=== PATIENT | female | born 1945 | race Caucasian/White ===

== ENCOUNTER 2016-04-20 10:48 | Day surgery (SDC) | payer MEDICARE ==
[~2016-04-20 10:48] MED LIST: ACETAMINOPHEN 325 MG TABLET PO PRN; ACETYLCHOLINE CHLORIDE 20 DROP KIT IO PRN; BUPIVACAINE HCL/PF 30 ML VIAL IJ PRN; CYCLOPENTOLATE HCL 20 DROP BTL RIGHTEYE PRN; DEXTROSE 5%-0.5 NORMAL SALINE 1,000 ML IV PRN; EPINEPHrine 1 MG/ML AMPUL IO PRN; HYALURONATE SODIUM 0.4 ML DISP.SYRIN IO PRN; HYALURONATE SODIUM 0.85 ML DISP.SYRIN IO PRN; LIDOCAINE HCL/PF 200 MG/5 ML AMPUL TP PRN; LIDOCAINE HCL/PF 5 ML VIAL IO PRN; NORMAL SALINE 3 ML BOX IV PRN; TETRACAINE HCL 150 DROP BTL OP PRN
[2016-04-20] MEDS: TROPICAMIDE 150 DROP BTL RIGHTEYE PRN ×3 (11:32→11:56)
[2016-04-20] MEDS: PHENYLEPHRINE HCL 50 DROP BTL RIGHTEYE PRN ×3 (11:32→11:56)
[2016-04-20] MEDS ORDERED: DEXTROSE 5%-0.5 NORMAL SALINE 1,000 ML IV ONE (11:56)
[2016-04-20] MEDS ORDERED: HYALURONATE SODIUM 0.85 ML DISP.SYRIN IO ONE (12:50)
[2016-04-20 14:05] VITALS: BP 120/66
== END 2016-04-20 10:49 | disposition home or self-care (01) ==
LOC: AMB 10:48
PROVIDERS: ATTEND Ophthalmology
PROC: 08RJ3JZ Replacement of Right Lens with Synthetic Substitute, Percutaneous Approach (ICD-10-PCS; principal; 2016-04-20 12:00)
DX: H26.9 Unspecified cataract (principal); I10 Essential (primary) hypertension; Z87.891 Personal history of nicotine dependence; Z68.1 Body mass index [BMI] 19.9 or less, adult

== ENCOUNTER 2016-05-04 08:50 | Day surgery (SDC) | payer MEDICARE ==
[~2016-05-04 08:50] MED LIST changes: +CYCLOPENTOLATE HCL 20 DROP BTL LEFTEYE PRN; -CYCLOPENTOLATE HCL 20 DROP BTL RIGHTEYE PRN
[2016-05-04] MEDS: PHENYLEPHRINE HCL 50 DROP BTL LEFTEYE PRN ×3 (09:31→09:55)
[2016-05-04] MEDS: TROPICAMIDE 150 DROP BTL LEFTEYE PRN ×3 (09:31→09:55)
[2016-05-04] MEDS ORDERED: DEXTROSE 5%-0.5 NORMAL SALINE 1,000 ML IV ONE (09:48)
[2016-05-04 11:50] VITALS: BP 132/78
== END 2016-05-04 08:51 | disposition home or self-care (01) ==
LOC: AMB 08:50
PROVIDERS: ATTEND Ophthalmology
PROC: 08RK3JZ Replacement of Left Lens with Synthetic Substitute, Percutaneous Approach (ICD-10-PCS; principal; 2016-05-04 10:00)
DX: H26.9 Unspecified cataract (principal); I10 Essential (primary) hypertension; Z87.891 Personal history of nicotine dependence; Z68.1 Body mass index [BMI] 19.9 or less, adult

== ENCOUNTER 2016-08-31 22:57 | Inpatient (IN) | payer MEDICARE ==
[2016-08-31] MEDS ORDERED: ALBUTEROL SULFATE/IPRATROPIUM 3 ML NEBU IH ONE ×2 (23:01→23:05)
[2016-08-31] MEDS ORDERED: ASPIRIN 81 MG TAB.CHEW PO ONE (23:05)
[2016-08-31] MEDS ORDERED: METHYLPREDNISOLONE SOD SUCC/PF 40 MG/ML VIAL IV ONE (23:05)
--- NOTE | 2016-08-31 23:08 | ERNOTE ---
Dyspnea - Date Date of Service: 08/31/16 - General Presenting Symptoms: shortness of breath Time Seen by Provider: 08/31/16 23:03 Source: patient, EMS Exam Limitations: clinical condition - Immun/Allergies/Home Medications Immunizations: IMMUNIZATION HX History of Influenza Vaccine More Information Required Hx Pneumococcal Vaccination More Information Required Allergies/Adverse Reactions: Allergies No Known Allergies Allergy (Verified 05/04/16 09:23) Home Medications: HOME MEDICATIONS Sertraline HCl [Zoloft] 200 mg PO DAILY 05/23/13 [Last Taken 05/27/13] amLODIPine BESYLATE [Norvasc] 5 mg PO DAILY 05/23/13 [Last Taken 05/27/13] Budesonide [Pulmicort Respules] 0.5 mg IH BIDRT #60 vial.neb 11/07/14 [Last Taken Unknown] Metoprolol Tartrate [Lopressor] 25 mg PO Q8H #90 tablet 11/07/14 [Last Taken 12:00] Pantoprazole Sodium [Protonix] 40 mg PO BID@0700,2100 #60 tablet. 11/07/14 [ Last Taken Unknown] ALPRAZolam [Xanax] 1 mg PO HS 04/15/16 [Last Taken Unknown] - History of Present Illness Narrative: INCREASED SOB OVER THE PAST 3 DAYS . SHE HAS END STAGE COPD AND IS ON 2.5 L O2 AT HOME WHICH HER TURNED UP TO 3 L YESTERDAY. NO KNOWN FEVER. SAYS SHE HAS BEEN BAD FOR YEARS BUT GOING DOWN HIL RAPIDLY IN THE PAST YEAR WITH 40 LB WT. LOSS AND DECREASE STRENGTH AND APPETITE. Review of Systems - Narrative Narrative: UNABLE TO GET GOOD ROS PT HAS EXTREME DYSPNEA SECONDARY TO HER COPD EXACERBATION BUT SONE REPORTS THAT SHE HAS HAD INCREASE SOB FOR 3 DAYS. SEE HPI - Review of Systems Constitutional: Present: See HPI Respiratory: Present: See HPI, shortness of breath All Other Systems: All systems neg except as marked - Patient's Past Medical History Patient History - Medical: Depression, Other Patient History - Cardiac/Respiratory: Coronary Heart Disease, CHF, COPD, Hypertension, Myocardial Infarction, Pneumonia Patient History - Cancer: No Hx of Cancer Patient History - Surgical Procedures: Cataracts, Tubal Ligation, Other Patient History - Other: None - Family History Mother Family History - Medical: , Diabetes Type 1 Family History - Cardiac/Respiratory: COPD, Hypertension, Myocardial Infarction Family History - Cancer: No pertinent family hx Father Family History - Medical: , No pertinent hx Family History - Cardiac/Respiratory: Hypertension Family History - Cancer: No pertinent family hx - Social History Living Situations: spouse Abuse History: No History of abuse Psych History: Hx of Anxiety, Hx of Depression, Current tx/ever been on anti- depressants or anti-anxiety meds Smoking Status: Former smoker - CLAIMS SHE QUIT. Alcohol Use: none Drug Use: none - Immunizations Hx Pneumococcal Vaccination: More Information Required to Determine History of Influenza Vaccine: More Information Required to Determine Physical Exam - Physical Exam General Appearance: Present: severe distress - VERY CACHETIC LADY WITH EXTREME DYSPNEA, CAN HARDLY TALK, THOUGH SHE IS ALERT AND ORIENTED. Eye Exam: Normal inspection: bilateral Respiratory: Present: accessory muscle use, decreased breath sounds - ESPECIALLY OVER RIGHT LUNG FIELD. , rales Cardiovascular/Chest: Present: no murmur, normal peripheral pulses, tachycardia Peripheral Pulses: N=norm/S=strong/W=weak/B=bound/A=absent: Dorsalis-pedis (R): Normal, Dorsalis-pedis (L): Normal Gastrointestinal/Abdominal: Present: nontender, soft, no organomegaly Back Exam: Present: normal inspection - EXCEPT FOR BEING VERY BONY. Extremity Exam: Present: normal inspection, non-tender, no edema Neurological Exam: Present: alert, oriented Skin Exam: Present: normal color ED Progress - Date and Time Seen: Date and Time: 09/01/16 00:26 TALKING WITH PT. AND HER AND BOTH SAYS THAT SHE DOES NOT WANT TO BE INTUBATED AND ON A VENTILATOR OR HAVE CPR IF HER HEART WOULD STOP. SEVERAL STAFF ALSO HEARD THIS THOUGH SHE HAS NOT PUT ANYTHING IN WRITING . I DID EXPLAIN TO HER THAT SHE IS VERY CRITICAL AND MAY VERY WELL NOT MAKE IT , HE UNDERSTANDS AND IS NOT SURPRISED AND HE SAYS SHE HAS BEEN GREATLY DETERIORATING THE LAST YEAR. - Results and Orders Patient's Lab Results:: I have reviewed the patient's lab results. Results and Orders: WBC = 23K WIOTH LEFT SHIFT AND TOXIC VACUOLATION, LYTES = WNL, BUN = 44 WITH NL CREAT =1. D DIMER = ELEVATED AND LACTIC = 3.0 . TROP = NEG AND BNP = 4.7K. ABG ON BIPAP AT 18/4 = PH 7.36 CO2-61, O2 -69 - Vital Signs Patient's Vital Signs:: I have reviewed the patient's vital signs. - EKG EKG: unchanged from - 01/2014 EXCEPT THAT NOW IS TACHYCARDIC. - X-Ray X-Ray #1 X-Ray: chest - HYPERINFLATED LEFT LUNG, LARGE EFFUSION /INFILTRATE TO RIGHT LUNG OBSCURING DIAPHRAGM ON THE RIGHT. - Progress/Reassessment Progress:: Improved - BUT ONLY SL. SO. SHE DOES SEEM MORE COMFORTABLE WITH BIPAP . - Transfer of Care Expected Disposition: Admit Plan - Plan Plan: [id number] - I DISCUSSED WITH HOSPITALIST PEPE ABOUT ADMITTING PT AND SHE ISS DOWN SEEING THE PT. Departure Clinical Impression: COPD with exacerbation Pneumonia Qualifiers: Pneumonia type: due to unspecified organism Laterality: right Lung location: lower lobe of lung Qualified Code(s): J18.1 - Lobar pneumonia, unspecified organism - Departure Disposition: [facility] Condition: Critical
[2016-08-31 23:16] LABS: Hematocrit 37.1 % (37.0-47.0); Hemoglobin 11.4 gm/dL (12.5-16.0); Mean Corpuscular Hemoglobin 27.7 pg (27-31); Mean Corpuscular Hgb Conc 30.7 g/dl (32-36); Mean Platelet Volume 8.9 fl (6.0-9.5); Platelet Count 444 K/mm3 (150-450); Red Blood Count 4.12 M/mm3 (4.2-5.4); Red Cell Distribution Width 14.4 % (11.5-14.0); White Blood Count 23.8 K/mm3 (4.0-10.5)
[2016-08-31] MEDS ORDERED: METHYLPREDNISOLONE SOD SUCC/PF 125 MG/2 ML VIAL ONE (23:20)
[2016-08-31] MEDS ORDERED: ASPIRIN 81 MG TAB.CHEW ONE (23:20)
[2016-08-31 23:21] LABS: Total Cells Counted 100
[2016-08-31] MEDS ORDERED: ALBUTEROL SULFATE 2.5 MG/3 ML VIAL.NEB IH ONE (23:24)
[2016-08-31] MEDS ORDERED: LEVOFLOXACIN/D5W 750 MG/150 ML BAG IV ONE (23:30)
[2016-08-31] MEDS ORDERED: LORazepam 2 MG/ML DISP.SYRIN IV ONE (23:31)
[2016-08-31] MEDS ORDERED: LORazepam 2 MG/ML DISP.SYRIN ONE (23:35)
[2016-08-31 23:36] LABS: ALT 12 U/L (19-67); AST 18 U/L (0-48); Albumin * 2.1 gm/dl (3.4-5.0); Alkaline Phosphatase * 98 U/L (50-170); Anion Gap 9.7 mmol/L (6.8-13.8); BNP * 4767 pg/mL (5-325); BUN/Creatinine Ratio 41.5 (9.0-21.6); Bilirubin, Total 0.5 mg/dL (0.0-1.1); Blood Urea Nitrogen 44 mg/dL (3-23); Ca. Corrected For Albumin 9.2 mg/dL (8.4-10.2); Chloride 94 mmol/L (97-106); Glucose * 135 mg/dL (70-110); Potassium 3.7 mmol/L (3.4-4.6); Sodium 137 mmol/L (132-142); Total Protein 6.5 gm/dL (6.2-8.2); Troponin I Less than 0.017 ng/ml (0.00-0.10)
[2016-08-31 23:38] LABS: Band 14 % (0-2.0); Immature Granulocyte 7 (0-1); Lymphocyte 2 % (20-51); Monocyte 2 % (0-9); Neutrophil 75 % (42-75); Neutrophil # 17.9 K/mm3 (1.3-6.0)
[2016-08-31 23:40] LABS: Toxic Granulation Trace
[2016-08-31 23:41] LABS: Dohle Bodies 1+; Platelet Estimate Normal (NORMAL); RBC Morphology Normal (NORMAL)
[2016-08-31] MEDS ORDERED: ALBUTEROL SULFATE 2.5 MG/0.5 ML VIAL.NEB IH ONE (23:42)
[2016-08-31] MEDS ORDERED: NORMAL SALINE 1,000 ML IV PRN (23:56)
[2016-09-01] MEDS ORDERED: NORMAL SALINE 1,000 ML IV ONE (00:41)
[2016-09-01 01:31] LABS: Urine Bilirubin 1 mg/dl (NEGATIVE); Urine Blood Negative /ul (NEGATIVE); Urine Ketone Negative (NEGATIVE); Urine Nitrite Negative (NEGATIVE); Urine Protein 15 mg/dL (NEGATIVE); Urine Specific Gravity 1.025 SP.GR. (1.005-1.010); Urine Urobilinogen Normal (NORMAL); Urine pH 5.5 pH (5.0-7.0)
[2016-09-01] MEDS: NORMAL SALINE 1,000 ML IV ONE ×2 (01:39→01:45)
[2016-09-01 02:00] LABS: Urine Amorphous Sediment Few - 1+ (NONE-FEW); Urine Appearance Slightly Cloudy; Urine Bacteria 1+; Urine Color Yellow; Urine RBC None Seen /hpf (0-5); Urine WBC 0-5 /hpf (0-5)
[2016-09-01] MEDS ORDERED: LEVALBUTEROL HCL 1.25 MG/3 ML AMPUL IH ONE (02:41)
[2016-09-01] MEDS ORDERED: LEVALBUTEROL HCL 1.25 MG/3 ML AMPUL IH SCH ×2 (03:00→07:00)
--- NOTE | 2016-09-01 03:10 | HP ---
Chief Complaint - Chief Complaint Date of Service: 09/01/16 Time of Service: 02:38 Chief Complaint: " SOB, Weakness, Fall". Source of HPI- Pt; unreliable, Pt's spouse Lopez, ER provider report. History of Present Illness: Mrs. Boland is a 71-yr-old [place] pt of Dr. Efe Machado with a PMH of: COPD, Depression, HTN & Respiratory Failure. Pt is in a somnolent state of consciousness and therefore pt's Spouse, Lopez Boland, provided most of the information. He states the Mrs Boland developed worsening SOB 3 days ago. The longest distance she can walk before getting dyspneic is 10 ft. She has been sleeping in the recliner due her SOB. Tonight, the pt got extremely SOB while sitting on the recliner. He states that the pt begged him to bring her to the hospital, and so he called the EMS as she has been very weak. The pt is chronically on 2-3 L of oxygen at home and has been for the last 1 1/2 yrs. He reports that her appetite has been very poor and this yr alone, she has already lost 15 lbs and a total of about 40 since last yr. He also states that pt has been falling alot lately and complaints of hot/cold flashes. Tonight when the EMS arrived at her home, they were not able to obtain any SPO2 reading and she was placed on BIPAP with 100% fi02 enroute to the hospital. They were finally able to get a reading of 90% upon entry to the hospital. She presented with tachycardia, tachypnea and noted to use accessory muscles on arrival to the ED. She remained on the BIPAP while at the ED and the ABG's obtained showed Respiratory Acidosis. ERP spoke to the pt's spouse about treatment plan in the event that her respiratory distress worsened and the likelihood of requiring intubation if the ABG'S worsened. He affirmed that the pt would not have wished for intubation with mechanical ventilation and he would not want the pt to undergo that kind of aggressive measure. Other workup at the ED showed she had Leukocytosis with WBC count of 23,800 with a Left shift & Lactic acid of 3.0. The CXR obtained showed she had infiltrates suggesting Pneumonia and Large RT Pleural effusion. Pt will need to be admitted inpatient to a closed monitoring unit due to Acute Respiratory Distress and Sepsis. - Patient's Past Medical History Patient History - Medical: Depression, Other Patient History - Cardiac/Respiratory: Coronary Heart Disease, CHF, COPD, Hypertension, Myocardial Infarction, Pneumonia Patient History - Cancer: No Hx of Cancer Patient History - Surgical Procedures: Cataracts, Tubal Ligation, Other Patient History - Other: None LMP (females 10-50): Menopausal - Family History Mother Family History - Medical: , Diabetes Type 1 Family History - Cardiac/Respiratory: COPD, Hypertension, Myocardial Infarction Family History - Cancer: No pertinent family hx Father Family History - Medical: , No pertinent hx Family History - Cardiac/Respiratory: Hypertension Family History - Cancer: No pertinent family hx - Social History Living Situations: spouse Abuse History: No History of abuse Psych History: Hx of Anxiety, Hx of Depression, Current tx/ever been on anti- depressants or anti-anxiety meds Smoking Status: Former smoker - CLAIMS SHE QUIT. Alcohol Use: none Drug Use: none - Immunizations Hx Pneumococcal Vaccination: More Information Required to Determine History of Influenza Vaccine: More Information Required to Determine Review Of Systems (GEN) - Review of Systems Misc: All systems neg except as marked Additional Comments: ROS unobtainable due to pt decreased level of consciousness. Allergies/Adverse Reactions: Allergies Allergy/AdvReac Type Severity Reaction Status Date / Time No Known Allergies Allergy Verified 09/01/16 04:08 Home Medications: HOME MEDICATIONS Sertraline HCl [Zoloft] 200 mg PO DAILY 05/23/13 [Last Taken 05/27/13] amLODIPine BESYLATE [Norvasc] 5 mg PO DAILY 05/23/13 [Last Taken 05/27/13] Budesonide [Pulmicort Respules] 0.5 mg IH BIDRT #60 vial.neb 11/07/14 [Last Taken Unknown] Metoprolol Tartrate [Lopressor] 25 mg PO Q8H #90 tablet 11/07/14 [Last Taken 12:00] Pantoprazole Sodium [Protonix] 40 mg PO BID@0700,2100 #60 tablet.dr 11/07/14 [ Last Taken Unknown] ALPRAZolam [Xanax] 1 mg PO HS 04/15/16 [Last Taken Unknown] Exam - Exam Vital Signs: Vital Signs - Last Taken Temp 36.7 C 08/31/16 23:00 Pulse 118 H 09/01/16 02:17 Resp 25 H 06/20/17 02:17 BP 133/85 09/01/16 02:17 Pulse Ox 98 09/01/16 01:26 Constitutional: Present: Somnolent, Other, Thin and frail, Looks Older than stated age ENT Exam: Present: dry mucous membranes Neck: Present: normal inspection, trachea midline Back Exam: Present: normal inspection Breasts: Present: Exam deferred Respiratory: Present: decreased breath sounds, rales - RT base Cardiovascular/Chest: Present: irregularly irregular Abdomen: Present: soft, nontender /Rectal: Present: Other - Zambrano catheter Extremity: Present: normal inspection, no pedal edema Skin Exam: Present: cool/dry, mottled - On the knees, pallor Lymphatic: Present: no adenopathy Neurologic: Present: other - Orineted to self only, GCS of 7 Appearance: Present: impaired insight Eye contact: Present: other - lacks spontanous eye opening. Thoughts: Present: no apparent hallucination Diagnostic Studies: Laboratory Results WBC 23.8 K/mm3 (4.0-10.5) H 08/31/16 23:10 RBC 4.12 M/mm3 (4.2-5.4) L 08/31/16 23:10 Hgb 11.4 gm/dL (12.5-16.0) L 08/31/16 23:10 Hct 37.1 % (37.0-47.0) 08/31/16 23:10 MCV 90.0 fl (78-100) 08/31/16 23:10 MCH 27.7 pg (27-31) 08/31/16 23:10 MCHC 30.7 g/dl (32-36) L 08/31/16 23:10 RDW 14.4 % (11.5-14.0) H 08/31/16 23:10 Plt Count 444 K/mm3 (150-450) 08/31/16 23:10 MPV 8.9 fl (6.0-9.5) 08/31/16 23:10 Neutrophils % (Manual) 75 % (42-75) 08/31/16 23:10 Band Neuts % (Manual) 14 % (0-2.0) H 08/31/16 23:10 Lymphocytes % (Manual) 2 % (20-51) L 08/31/16 23:10 Monocytes % (Manual) 2 % (0-9) 08/31/16 23:10 Immature Granulocytes 7 (0-1) H 08/31/16 23:10 Neutrophils # (Manual) 17.9 K/mm3 (1.3-6.0) H 08/31/16 23:10 Lymphocytes # (Manual) 0.5 k/mm3 (1.5-3.5) L 08/31/16 23:10 Monocytes # (Manual) 0.5 k/mm3 (0.0-1.0) 08/31/16 23:10 Toxic Granulation Trace 08/31/16 23:10 Toxic Vacuolation 4+ 08/31/16 23:10 Dohle Bodies 1+ 08/31/16 23:10 Platelet Estimate Normal (NORMAL) 08/31/16 23:10 RBC Morphology Normal (NORMAL) 08/31/16 23:10 D-Dimer 1.48 mg/L (0.19-0.49) H 08/31/16 23:10 pCO2 61.2 mmHg (32.0-45.0) H 08/31/16 23:45 pO2 69.3 mmHg (83.0-108.0) L 08/31/16 23:45 HCO3 33.4 mmol/L (21.0-28.0) H 08/31/16 23:45 Total CO2 35.3 mmol/L (19.0-24.0) H 08/31/16 23:45 Base Excess 6.3 mmol/L (-2.0-3.0) H 08/31/16 23:45 ABG pH 7.36 (7.35-7.45) 08/31/16 23:45 ABG O2 Sat (Measured) 92.7 % (94.0-98.0) L 08/31/16 23:45 Sodium 137 mmol/L (132-142) 08/31/16 23:10 Plasma Sodium 138 mmol/L (130-142) 08/31/16 23:10 Potassium 3.7 mmol/L (3.4-4.6) 08/31/16 23:10 Chloride 94 mmol/L (97-106) L 08/31/16 23:10 Carbon Dioxide 37.0 mmol/L (24-32.6) H 08/31/16 23:10 Anion Gap 9.7 mmol/L (6.8-13.8) 08/31/16 23:10 BUN 44 mg/dL (3-23) H 08/31/16 23:10 Creatinine 1.06 mg/dL (0.4-1.4) 08/31/16 23:10 Est GFR (Non-Af Amer) 55 mL/min (60-130) L 08/31/16 23:10 BUN/Creatinine Ratio 41.5 (9.0-21.6) H 08/31/16 23:10 Random Glucose 135 mg/dL (70-110) H 08/31/16 23:10 Lactic Acid, Venous 3.0 mmol/L (0.4-1.9) H* 08/31/16 23:10 Calcium 8.0 mg/dL (7.9-10.9) 08/31/16 23:10 Calcium Adj for Albumin 9.2 mg/dL (8.4-10.2) 08/31/16 23:10 Total Bilirubin 0.5 mg/dL (0.0-1.1) 08/31/16 23:10 AST 18 U/L (0-48) 08/31/16 23:10 ALT 12 U/L (19-67) L 08/31/16 23:10 Alkaline Phosphatase 98 U/L (50-170) 08/31/16 23:10 Troponin I Less than 0.017 ng/ml (0.00-0.10) 08/31/16 23:10 B-Natriuretic Peptide 4767 pg/mL (5-325) H 08/31/16 23:10 Total Protein 6.5 gm/dL (6.2-8.2) 08/31/16 23:10 Albumin 2.1 gm/dl (3.4-5.0) L 08/31/16 23:10 Urine Color Yellow 09/01/16 01:20 Urine Appearance Slightly cloudy 09/01/16 01:20 Urine pH 5.5 pH (5.0-7.0) 09/01/16 01:20 Ur Specific [place] 1.025 SP.GR. (1.005-1.010) 09/01/16 01:20 Urine Protein 15 mg/dL (NEGATIVE) H 09/01/16 01:20 Urine Glucose (UA) Negative mg/dL (NEGATIVE) 09/01/16 01:20 Urine Ketones Negative mg/dL (NEGATIVE) 09/01/16 01:20 Urine Blood Negative /ul (NEGATIVE) 09/01/16 01:20 Urine Nitrate Negative (NEGATIVE) 09/01/16 01:20 Urine Bilirubin 1 mg/dl (NEGATIVE) H 09/01/16 01:20 Urine Ictotest Negative (NEGATIVE) 09/01/16 01:20 Prot Sulfosalicylic Acd Negative mg/dL (0) 09/01/16 01:20 Urine Urobilinogen Normal EU/dl (NORMAL) 09/01/16 01:20 Ur Leukocyte Esterase Negative /ul (NEGATIVE) 09/01/16 01:20 Urine RBC None seen /hpf (0-5) 09/01/16 01:20 Urine WBC 0-5 /hpf (0-5) 09/01/16 01:20 Ur Epithelial Cells 0-5 /hpf (0-5) 09/01/16 01:20 Amorphous Sediment Few - 1+ (NONE-FEW) 09/01/16 01:20 Urine Bacteria 1+ (NONE) H 09/01/16 01:20 Urine Culture Comments No culture indicated 09/01/16 01:20 Assessment/Plan - Assessment/Plan (1) Acute respiratory failure with hypercapnia Assessment: Pt presented with worsening respiratory symptoms not supported or evidenced by fluid overload signs. She had cardinal signs of hypercapnea: Dyspnea, tachycardic, tachypneic and impaired consciousness. She required high concentration of inspired oxygen at 100% via the BIPAP to be able to keep POX > 90%. The ABG results showed Respiratory acidosis. The CXR obtained had findings concerning for Pneumonia and Pleural effusion. She also had a WBC of 23,600 with a left shift. Her GSC Scale was 7. Pt not in a position to make an informed consent and so I discussed goals of care & management with the pt's spouse Lopez Boland, given the pt presentation of respiratory failure and how she could potentially need intubation with mechanical ventilation to overcome her respiratory distress. I explained to him that Mrs. Boland was on the BIPAP with the highest amount of oxygen that can be delivered to keep her POX level above 90% in order to maintain adequate lung perfusion & consciousness, and that the next step that would be normally be undertaken if pt failed to improve in her case or keep her POX above at least above 88% would be intubation. He reaffirmed again to me, that both of them had made decisions longtime ago that neither of them would want to be intubated and on mechanical ventilation and would rather be DNR if medical conditions got worse. He stated that he would not want the pt to be intubated and opted for DNR code status. He also stated the he understood the serious situation his was as explained to by the ER doctor. I informed him that that even though pt was DNR, we would still treat her for the Pneumomia & COPD, but the major challenge would if she continued having desaturations while on the BIPAP, then it would be imperative to transition to comfort care measures. He verbalized the understanding and agreed to the treatment plan. I assured him that if the pt's condition worsened, we would visit again about initiating comfort cares measures. Problem: Acute (2) Sepsis Assessment: Pt received IVF hydration, however, the IVF had to be conservative due to respiratory distress.She received treatment with Levaquin and Meropenem. Problem: Acute (3) Pneumonia Assessment: Plan as above. Problem: Acute (4) COPD with exacerbation Problem: Acute (5) Hypertension Problem: Chronic Qualifiers: Hypertension type: essential hypertension Qualified Code(s): I10 - Essential (primary) hypertension
[2016-09-01] MEDS ORDERED: MEROPENEM 500 MG in NORMAL SALINE 100 ML IV SCH (04:00)
[2016-09-01] MEDS ORDERED: POLYVINYL ALCOHOL 150 DROP BTL EACHEYE PRN (04:22)
[2016-09-01] MEDS ORDERED: ATROPINE SULFATE 150 DROP BTL SL PRN (04:22)
[2016-09-01] MEDS: LORazepam 2 MG/ML DISP.SYRIN IV PRN ×2 (04:54→12:51)
[2016-09-01] MEDS: MORPHINE SULFATE 4 MG/ML SYRG IV PRN ×2 (04:55→05:51)
[2016-09-01] MEDS ORDERED: METHYLPREDNISOLONE SOD SUCC 80 MG in WATER FOR INJ.,BACTERIOSTATIC 0 ML IV SCH (05:00)
[2016-09-01 05:11] VITALS: BP 91/55
--- NOTE | 2016-09-01 06:42 | PN ---
Progess Note - Interim Narrative: 09/01/16 06:34 Pt admitted to the SCU status, however 1 hour after being in the unit, I was notified by nursing about Desaturations to 80s on the BIPAP. She was given Xopenex and was able to recuperate up to the low 90s. However 20-30 minutes later, her finger SPO2 reading showed 60's. Pt noted to have cool extremities and mottling on the Bilateral knees downward. Pox reading unobtainable on any finger digits and on the ear lobe. ABGs obtained which showed worsening uncompensated Respiratory acidosis. I had a lengthy conversation with pt's spouse about pt's declining state despite attempts with the BIPAP use, Antibiotics, IV Steroids and Nebulizer treatment. I informed him that since the most aggressive management as discussed earlier with him was failing,it was time to consider changing plan of care to comfort cares. He verbalized that understanding stating that he was completely agreeable to the approach being taken. Emotional support given and he was thankful. Plan of care communicated to nursing about de-escalation of medication cares.
[2016-09-01] MEDS ORDERED: BUDESONIDE 0.5 MG/2 ML VIAL.NEB IH SCH (07:00)
[2016-09-01] MEDS ORDERED: HEPARIN SODIUM,PORCINE 5,000 UNITS/ML VIAL SC SCH (09:00)
[2016-09-01] MEDS ORDERED: MORPHINE SULFATE 2 MG/ML DISP.SYRIN IV PRN (10:08)
[2016-09-01] MEDS ORDERED: oxyCODONE HCL 5 MG/5 ML UDC PO PRN (13:14)
[2016-09-01] MEDS: MORPHINE SULFATE 10 MG/0.5 ML SYRINGE PO PRN ×7 (13:41→19:10)
[2016-09-01] MEDS ORDERED: LORazepam 2 MG/ML DISP.SYRIN IV PRN ×2 (19:21→19:23)
[2016-09-01] MEDS ORDERED: HYDROmorphone HCL 1 MG/ML DISP.SYRIN IV PRN (19:22)
[2016-09-01] MEDS ORDERED: HYDROmorphone HCL 2 MG/ML VIAL IV PRN (19:23)
[2016-09-01] MEDS ORDERED: LORazepam 1 MG TABLET PO PRN (20:15)
--- NOTE | 2016-09-01 20:41 | DS ---
Discharge Summary - Provider Primary Care Provider: Efe Machado Admitting Clinician: Lizbeth Sousa Attending Physician on Admission: Baylee Nevarez Pronouncing Clinician: Autumn Rowley - Date and Time Date of : 09/01/16 Time of : 20:16 - Diagnosis/Cause of (1) Acute respiratory failure with hypercapnia Problems: Acute (2) COPD with exacerbation Problems: Acute (3) Pneumonia Problems: Acute (4) Sepsis Problems: Acute - Summary Details (narrative): Mrs. Boland is a 71-yr-old [place] pt of Dr. Efe Machado with a PMH of: COPD, Depression, HTN & chronic Respiratory Failure. Prior to admission pt had 3 days of worsening dyspnea and became very weak to the point of calling EMS. EMS started bipap with 100% fiO2 enroute to the ER. ABG's obtained showed Respiratory Acidosis. ERP spoke to the pt's spouse about treatment plan in the event that her respiratory distress worsened and may require intubation. confirmed DNR wishes with no agressive measures. Other ED workup showed Leukocytosis with WBC count of 23,800 with a Left shift & Lactic acid of 3.0. The CXR showed infiltrates suggesting Pneumonia and Large RT Pleural effusion. Pt was admitted inpatient to a closed monitoring unit due to Acute Respiratory Distress and Sepsis. Her GSC Scale was 7. Bipap was continued on admission and She received treatment with Levaquin and Meropenem. Shortly after admission, pt started desaturating to 80s on the BIPAP. She was given Xopenex and was able to increase sats to low 90s. However 20-30 minutes later, her finger SPO2 reading showed 60's. She continued to show signs of respiratory failure. ABG was obtained and showed worsening uncompensated respiratory acidosis. At this point, the agreed to stop treatment and place the patient on comfort care measures only. The patient was made comfortable through the use of IV and oral medication. At 2015, the patient was found to be in respiratory and cardiac failure with No respirations and no apical heart beat after auscultation for 2 minutes and time of was called by myself. Procedures Performed: none - Additional Data Confirmation of as documented by pronouncing clinician: no pulse, no respirations, no heart sounds, pupils fixed and dilated Family: at bedside Attending/PCP notified: Yes Attending physician: Efe Machado Was code activated: No Autopsy requested: No Project Management notified: Yes [employer] notified: Yes Advance Directives: Yes Hospice patient: No
== END 2016-09-01 20:16 | disposition expired | DRG 871 ==
LOC: ER 22:57 → SCU 09-01 02:19
PROVIDERS: ADMIT Nurse Practitioner; ATTEND Family Medicine
PROC: 4A033R1 Measurement of Arterial Saturation, Peripheral, Percutaneous Approach (ICD-10-PCS; principal; 2016-08-31)
PROC: 0T9B70Z Drainage of Bladder with Drainage Device, Via Natural or Artificial Opening (ICD-10-PCS; principal; 2016-08-31)
PROC: 5A09357 Assistance with Respiratory Ventilation, Less than 24 Consecutive Hours, Continuous Positive Airway Pressure (ICD-10-PCS; 2016-09-01)
DX: A41.9 Sepsis, unspecified organism (principal); J18.9 Pneumonia, unspecified organism; J96.22 Acute and chronic respiratory failure with hypercapnia; J44.0 Chronic obstructive pulmonary disease with (acute) lower respiratory infection; J44.1 Chronic obstructive pulmonary disease with (acute) exacerbation; J91.8 Pleural effusion in other conditions classified elsewhere; Z66 Do not resuscitate; I10 Essential (primary) hypertension; Z99.81 Dependence on supplemental oxygen; Z87.891 Personal history of nicotine dependence